=== PATIENT | female | born 1980 | race Caucasian/White ===

== ENCOUNTER → 2019-04-30 | Outpatient (CLI) | payer BC ==
[~2019-04-30] MED LIST: IBUP200 PO; Z PACK
== END | disposition home or self-care (01) ==
LOC: LAB SHORT 10:22 → PLD 10:22
DX: D22.4 Melanocytic nevi of scalp and neck (principal)
CPT/HCPCS: 88305

== ENCOUNTER 2019-12-30 07:25 | Day surgery (SDC) | payer BC | END 2019-12-30 22:38 | disposition home or self-care (01) | LOC: MOI US 07:25 → MOI MAM 08:00 → MOI US 22:38 | DX: N60.11 Diffuse cystic mastopathy of right breast (principal) | CPT/HCPCS: 19083; 77065; 88305; 88342; A4648 ==

== ENCOUNTER 2023-06-07 09:38 | Day surgery (SDC) | payer BC ==
[~2023-06-07] VITALS: Ht 167.6 cm; Wt 84.4 kg
[2023-06-07] MEDS ORDERED: ANASTROZOLE1 M7 PO (10:13)
[2023-06-07] MEDS ORDERED: OMEP20ER PO (10:43)
--- NOTE | 2023-06-07 11:02 | NUR ---
06/07/23 1102 Laura Martínez GIVEN PRE-OP PER DR CAREY
--- NOTE | 2023-06-07 11:48 | NUR ---
06/07/23 1148 Denise Gunter ABDOMEN PREPPED BY [email or web address] WITH DURAPREP RIGOBERTO AREA AND SURROUNDING AREA PREPPED WITH POVIDONE IODINE SOLUTION BY [email or web address]
[2023-06-07 12:57] VITALS: BP 147/86
--- NOTE | 2023-06-07 13:02 | NUR ---
06/07/23 1302 KYLIE EUGENE AT BEDSIDE. PT ALERT AND ORIENTED. EATING AND DRINKING WO DIFF. PT STATES "CRAMPY" BUT NOT BAD.
== END 2023-06-07 13:27 | disposition home or self-care (01) ==
LOC: ORSCSDS 09:38
PROVIDERS: Obstetrics & Gynecology
PROC: 0UB24ZZ Excision of Bilateral Ovaries, Percutaneous Endoscopic Approach (ICD-10-PCS; principal; 2023-06-07 11:00)
PROC: 0UB74ZX Excision of Bilateral Fallopian Tubes, Percutaneous Endoscopic Approach, Diagnostic (ICD-10-PCS; principal; 2023-06-07 11:00)
DX: C50.919 Malignant neoplasm of unspecified site of unspecified female breast (principal); Z17.0 Estrogen receptor positive status [ER+]; Z87.891 Personal history of nicotine dependence; G47.33 Obstructive sleep apnea (adult) (pediatric); K21.9 Gastro-esophageal reflux disease without esophagitis; Z86.16 Personal history of COVID-19
CPT/HCPCS: 88302; A9270; J0171; J1100; J1885; J2405; J2704; J2765; J2795; J3010; J7120